=== PATIENT | male | born 1955 | race Caucasian/White ===

== ENCOUNTER 2024-08-01 14:01 | Emergency (ER) | payer MEDICARE, OTHER, SELFPAY ==
[2024-08-01 14:08] VITALS: BP 106/61
[2024-08-01 14:32] LABS: % Basophils 1.4 % (0-2); % Eosinophils 4.6 % (0-6); % Immature Granulocytes 0.5 % (0-0.5); % Lymphocytes 26.2 % (20.5-51.1); % Monocytes 9.6 % (1.7-9.3); % Neutrophils 57.7 % (42.2-75.2); Absolute Basophils 0.1 10^3/uL (0-0.2); Absolute Eosinophils 0.4 10^3/uL (0-0.7); Absolute Immature Granulocytes 0.1 10^3/uL (0-0.05); Absolute Lymphocytes 2.5 10^3/uL (1.2-3.4); Absolute Monocytes 0.9 10^3/uL (0.1-0.6); Absolute Neutrophils 5.6 10^3/uL (1.4-6.5); Hematocrit 47.1 % (39.0-52.0); Hemoglobin 15.1 g/dL (13.0-18.0); Mean Corp Hgb Conc. 32.1 g/dL (33.0-37.0); Mean Corpuscular Hgb 27.8 pg (27.0-31.0); Mean Corpuscular Volume 86.7 fL (80.0-94.0); Mean Platelet Volume 9.2 fL (7.4-10.4); Nucleated Red Blood Cells % 0 % (-); Platelet Count 254 10^3/uL (130-400); Red Blood Cell Count 5.43 10^6/uL (4.70-6.10); Red Cell Dist. Width 13.7 % (11.5-14.5); White Blood Cell Count 9.7 10^3/uL (4.8-10.8)
[2024-08-01 14:50] LABS: Blood Urea Nitrogen 18 mg/dl (9-20); Carbon Dioxide 31 mmol/L (22-30); Chloride 100 mmol/L (98-107); Glucose 87 mg/dl (70-99); Sodium 138 mmol/L (135-145); eGFR > 60.00
[2024-08-01 15:25] LABS: Troponin I 0.016 ng/ml
--- NOTE | 2024-08-01 16:38 | ED.GENMED ---
History of Present Illness
General
Chief Complaint: Dizziness
Time Seen by Provider: 08/01/24 16:28
History of Present Illness
History of Present Illness:
Patient is a 69-year-old male with history of PR with stent, hyperlipidemia presenting to the emergency department with dizziness and weakness. Patient states that around 11 AM he was at his daughter's house when he became extremely tired dizzy and
slightly nauseous. Also the symptoms have resolved. He states that this has been ongoing for some time. He states that it is not positional and it is not exertional. Will happen randomly. At this time his only complaint is that he is tired. He
also notes for the past few days he has had cough congestion runny nose. He denies any melena or hematochezia. No nausea vomiting or diarrhea. No chest pain. No difficulty breathing. This is not similar to when he needed his stent.
Past History
Past History
ED Past Medical History: CAD and Hypercholesterolemia
ED Past Surgical History: Cardiac and Orthopedic
Phy Exam
Physical Exam
Physical Exam:
GENERAL: in no acute distress
HEENT: normocephalic, extraocular movements intact, dry oral mucosa
NECK: normal inspection
RESPIRATORY: no respiratory distress, clear to auscultation bilaterally
CARDIOVASCULAR: regular rate and rhythm
ABDOMEN/: soft, non-distended, non-tender to palpation, no rebound or guarding
EXTREMITIES: non-tender, no edema/swelling
NEUROLOGIC: awake and alert, moves all extremities, strength equal in upper and lower extremities, sensation intact, normal [id number]
SKIN: warm
Course
Orders/Labs/Results
Orders:
Orders
08/01/24 14:02
Electrocardiogram (*1) Urgent
Reason for Study: Vertigo / Dizzy
EKG- Treatment ONCE
08/01/24 14:22
Basic Metabolic Panel Urgent
Complete Blood Count/With Diff Urgent
TSH Reflex To Free T4 Urgent
Comment: ADD ON
Troponin I Urgent
08/01/24 16:37
Add On- LAB Stat
Tests Added?: magnesium, thyroid with reflex
CR Chest - 2 Views Urgent
Comment:
Reason For Exam: cough
08/01/24 16:41
0.9% Sodium Chloride 1000 ml [Nss] 1,000 ml IV BOLUS
08/01/24 16:45
COVID-19 Antigen Urgent
Source: Nasal Swab
Influenza A+B Rapid Molecular Urgent
LOVE Source: Nasal Swab
Specimen Description:
Abnormal Lab Results
08/01/24
14:22
MCHC 32.1 L g/dL
(33.0-37.0)
Abs Immat Gran (auto) 0.1 H 10^3/uL
(0-0.05)
Absolute Monos (auto) 0.9 H 10^3/uL
(0.1-0.6)
Monocytes % 9.6 H %
(1.7-9.3)
Carbon Dioxide 31 H mmol/L
(22-30)
08/01/24 14:22
08/01/24 14:22
Vital Signs
Initial and Last Documented VS:
Initial Vital Signs
Temp Pulse Resp BP Pulse Ox
97.6 F 71 18 106/61 98
08/01/24 14:08 08/01/24 14:08 08/01/24 14:08 08/01/24 14:08 08/01/24 14:08
Last Documented Vital Signs
Temp Pulse Resp BP Pulse Ox
97.6 F 55 18 116/63 98
08/01/24 14:08 08/01/24 17:00 08/01/24 17:00 08/01/24 17:00 08/01/24 17:00
MDM/Problems Addressed
Differential Diagnosis Includes:
Patient is a 69-year-old man with history of prior PR with stent presenting to the emergency department with dizziness fatigue as well as URI symptoms. Vitals are unremarkable and exam is only notable for dry oral mucosa. Differential is broad but
consists of viral infection versus metabolic derangement versus pneumonia versus dehydration. History and exam not consistent with posterior CVA. Less likely to be atypical ACS. Will check blood work EKG obtained respiratory swab. Will also
obtain thyroid studies. Will give fluids.
*Critical Care Note
Total Time (30-74mins, 75-104mins- exclusive of procedures): Not Applicable
Update Note
Update Note:
On reevaluation patient resting comfortably. The dizziness has solved. Unfortunately the add-on labs did take multiple hours. I did discuss with lab a few times. Patient is requesting to leave. The thyroid results have not come back just yet.
Given that patient is ambulatory and is asymptomatic will discharge at this time. Strict return precautions
ED Attending Note
-
Portions of this chart may have been created with voice recognition software.� Occasional wrong word or��sound alike� substitutions may have occurred due to the inherent limitations of voice recognition software.
Discharge Plan
Departure
Patient Disposition: Home (Routine Discharge)
Date of Disposition: 08/01/24
Time of Disposition: 19:28
Patient with high blood pressure during this ER visit?: No
Discharge Problem:
Dizziness
Instructions: Dizziness
Referrals:
NONE,* [Family Provider] -
Activity Restrictions/Additional Instructions:
You were seen in the Emergency Department today for dizziness. While you were here we performed blood work, which was reassuring. Please continue to stay well-hydrated.
We would like for you to follow up with your primary care physician for further evaluation. If you experience fever, worsening of your symptoms, or develop any other new or concerning symptoms, please return to the Emergency Department immediately.
Please see the attached sheet for additional information.
Interventions
Interventions:
*Risk Screen - Suicide Last Done: 08/01/24 16:01
*General Assessment Last Done: 08/01/24 16:01
*Neglect/Abuse Screening Last Done: 08/01/24 16:01
ED- Fall Risk Assessment Last Done: 08/01/24 16:01
*ED COVID-19 Vaccine History Last Done: 08/01/24 16:01
ED- Neurological Assessment Last Done: 08/01/24 16:01
ED- Cardiac Assessment Last Done: 08/01/24 16:01
ED Swallowing Screen Last Done: 08/01/24 16:01
Discharge Date and Time
Print Language: OMANI
[2024-08-01 16:45] VITALS: BMI 28.2
[2024-08-01 16:47] VITALS: BP 107/59
[2024-08-01 17:00] VITALS: BP 116/63
[2024-08-01 17:07] LABS: COVID-19 Antigen Negative (Negative)
== END 2024-08-01 19:34 | disposition home or self-care (01) ==
LOC: EMR 14:01
PROVIDERS: Emergency Medicine; EMERGENCY PHYSICIAN Student in an Organized Health Care Education/Training Program
DX: R42 Dizziness and giddiness (principal); R11.0 Nausea; R53.1 Weakness; R09.89 Other specified symptoms and signs involving the circulatory and respiratory systems; R05.9 Cough, unspecified; Z11.52 Encounter for screening for COVID-19; E78.00 Pure hypercholesterolemia, unspecified; I25.2 Old myocardial infarction; Z95.5 Presence of coronary angioplasty implant and graft; I25.10 Atherosclerotic heart disease of native coronary artery without angina pectoris
CPT/HCPCS: 99283; 71046; 80048; 84443; 84484; 85025; 87502; 87811; 93005